=== PATIENT | female | born 1955 ===

== ENCOUNTER 2021-04-04 13:22 | Inpatient (IN) ==
[2021-04-04] MEDS ORDERED: Furosemide 40 mg/4 ml IV VIAL IV SCH (16:00)
[2021-04-04 16:25] LABS: ABS Lymphocytes 0.3 10^3/ul (1.0-4.8); ABS Monocytes 0.2 10^3/ul (0-0.8); ABS Neutrophils 6.8 10^3/ul (1.5-7.7); Hematocrit 48 % (35-47); Hemoglobin 15.5 g/dL (12.0-16.0); Lymphocyte % 4.1 %; Mean Corpuscular HGB Conc 32 g/dL (31-36); Mean Corpuscular Hemoglobin 33 pg (27-31); Mean Corpuscular Volume 103 fL (80-97); Mean Platelet Volume 7.5 fL (7.4-10.4); Platelet Count 242 10^3/uL (150-450); Red Blood Count 4.68 10^6 /uL (3.70-4.87); Red Cell Distribution Width 15 % (10-15); White Blood Count 7.3 10^3/uL (3.5-10.8)
[2021-04-04 16:27] LABS: Urine Appearance Cloudy; Urine Bilirubin Negative (Negative); Urine Blood 3+ (Negative); Urine Color Yellow; Urine Glucose Negative (Negative); Urine Ketones 1+ (Negative); Urine Nitrite Negative (Negative); Urine Protein 2+(100 mg/dL) (Negative); Urine Specific Gravity 1.026 (1.002-1.030); Urine Urobilinogen Negative (Negative)
[2021-04-04 16:35] LABS: Urine Bacteria Absent (Absent); Urine Red Blood Cell 3+(>10/hpf) (Absent); Urine Squamous Epithelial Cell Present (Absent); Urine White Blood Cell Trace(0-5/hpf) (Absent)
[2021-04-04] MEDS: Enoxaparin 40 MG/0.4 ML SYR SUBCUT SCH (16:40)
[2021-04-04] MEDS: Aspirin EC 81 mg TAB.EC (enteric coated) PO SCH (16:43)
[2021-04-04 16:44] LABS: Activated Partial Thrombo Time 33.6 seconds (26.0-38.0); INR 1.05 (0.86-1.15)
[2021-04-04 16:47] LABS: Troponin I 0.04 ng/mL (<0.03)
[2021-04-04 17:16] LABS: ALT 3 U/L (7-52); AST 12 U/L (13-39); Alkaline Phosphatase 55 U/L (35-149); Blood Urea Nitrogen 41 mg/dL (6-24); CO2 Carbon Dioxide 31 mmol/L (22-32); Calcium 9.1 mg/dL (8.6-10.3); Chloride 105 mmol/L (101-111); Globulin 2.9 g/dL (2-4); Glucose 136 mg/dL (70-100); Magnesium 2.1 mg/dL (1.9-2.7); Phosphorus 3.1 mg/dL (2.5-5.0); Sodium 141 mmol/L (135-145); Total Protein 5.9 g/dL (6.4-8.9)
[2021-04-04 17:17] LABS: Anion Gap 5 mmol/L (2-11); Potassium 5.2 mmol/L (3.5-5.0)
[2021-04-04] MEDS ORDERED: Albuterol HFA INHALER 8 gm MDI INH PRN (17:37)
[2021-04-04] MEDS ORDERED: Furosemide 40 mg/4 ml IV VIAL IV ONE (17:44)
[2021-04-04 18:38] LABS: Vitamin B12 643 pg/mL (180-914)
[2021-04-04 19:07] LABS: TSH Ultra Thyroid Stim Horm 0.02 mcIU/mL (0.34-5.60)
[2021-04-04] MEDS: Albuterol/Ipratropium NEB.SOL (2.5/0.5 MG) 3 ML NEB.SOLN INH SCH (19:44)
[2021-04-04] MEDS ORDERED: Iohexol 350 (CONTRAST) 500 ML MDV IV ONE (21:37)
[2021-04-04] MEDS ORDERED: Heparin 5000 UNITS/ML 1 mL VIAL SUBCUT SCH (22:00)
[2021-04-05 00:34] LABS: Troponin I 0.04 ng/mL (<0.03)
[2021-04-05 05:10] LABS: ABS Lymphocytes 0.4 10^3/ul (1.0-4.8); ABS Monocytes 0.5 10^3/ul (0-0.8); ABS Neutrophils 5.9 10^3/ul (1.5-7.7); Hematocrit 42 % (35-47); Hemoglobin 13.9 g/dL (12.0-16.0); Lymphocyte % 5.3 %; Mean Corpuscular HGB Conc 33 g/dL (31-36); Mean Corpuscular Hemoglobin 34 pg (27-31); Mean Corpuscular Volume 102 fL (80-97); Mean Platelet Volume 7.5 fL (7.4-10.4); Platelet Count 190 10^3/uL (150-450); Red Blood Count 4.12 10^6 /uL (3.70-4.87); Red Cell Distribution Width 14 % (10-15); White Blood Count 6.7 10^3/uL (3.5-10.8)
[2021-04-05 05:27] LABS: Anion Gap 2 mmol/L (2-11); Blood Urea Nitrogen 37 mg/dL (6-24); CO2 Carbon Dioxide 39 mmol/L (22-32); Calcium 8.4 mg/dL (8.6-10.3); Chloride 99 mmol/L (101-111); Glucose 118 mg/dL (70-100); Phosphorus 2.4 mg/dL (2.5-5.0); Potassium 4.2 mmol/L (3.5-5.0); Sodium 140 mmol/L (135-145)
[2021-04-05 05:49] LABS: Troponin I 0.03 ng/mL (<0.03)
[2021-04-05] MEDS: Albuterol/Ipratropium NEB.SOL (2.5/0.5 MG) 3 ML NEB.SOLN INH SCH (06:59)
[2021-04-05] MEDS: Aspirin EC 81 mg TAB.EC (enteric coated) PO SCH (09:38)
[2021-04-05] MEDS: Buprenorp/Nalox 8-2 MG FILM SL FILM SCH ×2 (09:39→20:30)
[2021-04-05] MEDS: Enoxaparin 40 MG/0.4 ML SYR SUBCUT SCH (09:39)
[2021-04-05 10:03] LABS: Free T4 1.11 ng/dL (0.61-1.12)
[2021-04-05 12:25] LABS: Body Fluid Source Pleural Fluid
[2021-04-05 13:21] LABS: Body Fluid Appearance Cloudy; Body Fluid Color Amber
[2021-04-05] MEDS ORDERED: Levalbuterol 0.63MG/3ML NEB UNIT OF USE INH PRN (13:29)
[2021-04-05] MEDS ORDERED: SPIRIVA Respimat (tiotropium) 2.5 mcg/inh Inhaler INH SCH (14:00)
[2021-04-05 14:18] LABS: Body Fluid WBC 806 /mcL
[2021-04-05 14:59] LABS: Body Fluid Mono 23 %; Body Fluid Other Cells 5; Body Fluid Total Cells Counted 200
[2021-04-05 18:56] LABS: Hematocrit 42 % (35-47); Hemoglobin 13.7 g/dL (12.0-16.0); Mean Corpuscular HGB Conc 33 g/dL (31-36); Mean Corpuscular Hemoglobin 33 pg (27-31); Mean Corpuscular Volume 102 fL (80-97); Mean Platelet Volume 7.4 fL (7.4-10.4); Platelet Count 187 10^3/uL (150-450); Red Blood Count 4.11 10^6 /uL (3.70-4.87); Red Cell Distribution Width 14 % (10-15); White Blood Count 10.5 10^3/uL (3.5-10.8)
[2021-04-05] MEDS ORDERED: Levalbuterol 0.63MG/3ML NEB UNIT OF USE INH SCH (19:00)
[2021-04-05 19:50] LABS: INR 1.1 (0.86-1.15)
[2021-04-06 05:14] LABS: ABS Lymphocytes 0.5 10^3/ul (1.0-4.8); ABS Monocytes 0.7 10^3/ul (0-0.8); ABS Neutrophils 5.7 10^3/ul (1.5-7.7); Eosinophil % 0.6 %; Hematocrit 40 % (35-47); Hemoglobin 12.9 g/dL (12.0-16.0); Lymphocyte % 6.8 %; Mean Corpuscular HGB Conc 32 g/dL (31-36); Mean Corpuscular Hemoglobin 33 pg (27-31); Mean Corpuscular Volume 102 fL (80-97); Mean Platelet Volume 8.2 fL (7.4-10.4); Platelet Count 158 10^3/uL (150-450); Red Cell Distribution Width 14 % (10-15); White Blood Count 6.9 10^3/uL (3.5-10.8)
[2021-04-06 05:28] LABS: Blood Urea Nitrogen 34 mg/dL (6-24); Calcium 8.1 mg/dL (8.6-10.3); Chloride 100 mmol/L (101-111); Glucose 108 mg/dL (70-100); Phosphorus 2.2 mg/dL (2.5-5.0); Potassium 4.6 mmol/L (3.5-5.0); Sodium 140 mmol/L (135-145)
[2021-04-06 05:31] LABS: CO2 Carbon Dioxide 43 mmol/L (22-32)
[2021-04-06] MEDS ORDERED: Potassium Phosphate IV 15 MMOLE in NS 0.9% 250 ml 250 ML IVPB ONE (05:42)
[2021-04-06] MEDS ORDERED: Sodium Phosphate IV 15 MMOLE in NS 0.9% 250 ml 250 ML IV ONE (07:25)
[2021-04-06] MEDS: SPIRIVA Respimat (tiotropium) 2.5 mcg/inh Inhaler INH SCH (07:45)
[2021-04-06] MEDS: Buprenorp/Nalox 8-2 MG FILM SL FILM SCH ×2 (09:15→22:16)
[2021-04-06] MEDS: Aspirin EC 81 mg TAB.EC (enteric coated) PO SCH (09:15)
[2021-04-06 09:47] LABS: Vitamin B12 419 pg/mL (180-914)
[2021-04-06 12:06] LABS: Lactate Dehydrogenase, BF 116 U/L
[2021-04-06] MEDS: Mometasone/Formoter 200/5 MDI INH SCH ×2 (12:21→21:02)
[2021-04-06 13:40] LABS: Fluid Type, Protein, Total PLEURAL; Total Protein, BF 3.3 g/dL
[2021-04-06 13:52] LABS: Glucose, BF 130 mg/dL
[2021-04-06] MEDS ORDERED: Enoxaparin 40 MG/0.4 ML SYR SUBCUT SCH (16:00)
[2021-04-06 18:17] LABS: Rapid COVID-19 Molecular Undetected (Undetected)
[2021-04-07 06:31] LABS: ABS Eosinophils 0.1 10^3/ul (0-0.6); ABS Lymphocytes 0.4 10^3/ul (1.0-4.8); ABS Monocytes 0.6 10^3/ul (0-0.8); ABS Neutrophils 5.7 10^3/ul (1.5-7.7); Eosinophil % 2.1 %; Hematocrit 40 % (35-47); Lymphocyte % 6.3 %; Mean Corpuscular HGB Conc 33 g/dL (31-36); Mean Corpuscular Hemoglobin 33 pg (27-31); Mean Corpuscular Volume 103 fL (80-97); Mean Platelet Volume 7.7 fL (7.4-10.4); Platelet Count 126 10^3/uL (150-450); Red Blood Count 3.91 10^6 /uL (3.70-4.87); Red Cell Distribution Width 14 % (10-15); White Blood Count 6.9 10^3/uL (3.5-10.8)
[2021-04-07 06:52] LABS: Blood Urea Nitrogen 30 mg/dL (6-24); CO2 Carbon Dioxide 39 mmol/L (22-32); Calcium 8.2 mg/dL (8.6-10.3); Chloride 102 mmol/L (101-111); Glucose 102 mg/dL (70-100); Magnesium 1.9 mg/dL (1.9-2.7); Phosphorus 2.7 mg/dL (2.5-5.0); Potassium 4.2 mmol/L (3.5-5.0); Sodium 140 mmol/L (135-145)
[2021-04-07] MEDS: Mometasone/Formoter 200/5 MDI INH SCH ×2 (08:56→21:22)
[2021-04-07] MEDS: SPIRIVA Respimat (tiotropium) 2.5 mcg/inh Inhaler INH SCH (08:56)
[2021-04-07] MEDS ORDERED: Enoxaparin 30 MG/0.3 ML SYR SUBCUT SCH (09:00)
[2021-04-07] MEDS: Aspirin EC 81 mg TAB.EC (enteric coated) PO SCH (09:03)
[2021-04-07] MEDS: Buprenorp/Nalox 8-2 MG FILM SL FILM SCH ×2 (09:32→20:52)
[2021-04-07 17:20] LABS: PCO2 Arterial 65 mmHg (35-45); PO2 Arterial 66 mmHg (80-100)
[2021-04-07] MEDS: acetaZOLAMIDE IV 500 MG in NS 0.9% 50 ML 50 ML IVPB SCH (18:16)
[2021-04-07 19:12] LABS: Blood Urea Nitrogen 29 mg/dL (6-24); CO2 Carbon Dioxide 40 mmol/L (22-32); Calcium 8.2 mg/dL (8.6-10.3); Chloride 101 mmol/L (101-111); Glucose 96 mg/dL (70-100); Potassium 4.5 mmol/L (3.5-5.0); Sodium 140 mmol/L (135-145)
[2021-04-07 19:29] LABS: LDH 121 U/L (140-271)
[2021-04-07] MEDS: Enoxaparin 30 MG/0.3 ML SYR SUBCUT SCH (20:52)
[2021-04-08 05:48] LABS: PCO2 Arterial 66 mmHg (35-45); PO2 Arterial 65 mmHg (80-100)
[2021-04-08 06:39] LABS: Blood Urea Nitrogen 24 mg/dL (6-24); CO2 Carbon Dioxide 38 mmol/L (22-32); Calcium 8.6 mg/dL (8.6-10.3); Chloride 103 mmol/L (101-111); Glucose 106 mg/dL (70-100); Magnesium 2.1 mg/dL (1.9-2.7); Phosphorus 3.2 mg/dL (2.5-5.0); Potassium 4.1 mmol/L (3.5-5.0); Sodium 141 mmol/L (135-145)
[2021-04-08] MEDS: SPIRIVA Respimat (tiotropium) 2.5 mcg/inh Inhaler INH SCH (07:44)
[2021-04-08] MEDS: Mometasone/Formoter 200/5 MDI INH SCH ×2 (07:44→21:09)
[2021-04-08] MEDS: Aspirin EC 81 mg TAB.EC (enteric coated) PO SCH (10:37)
[2021-04-08] MEDS: Buprenorp/Nalox 8-2 MG FILM SL FILM SCH ×2 (10:38→22:18)
[2021-04-08] MEDS: acetaZOLAMIDE IV 500 MG in NS 0.9% 50 ML 50 ML IVPB SCH (17:42)
[2021-04-08] MEDS: Enoxaparin 30 MG/0.3 ML SYR SUBCUT SCH (22:17)
[2021-04-09 06:49] LABS: Calcium 8.7 mg/dL (8.6-10.3)
[2021-04-09] MEDS: Mometasone/Formoter 200/5 MDI INH SCH ×2 (09:13→19:17)
[2021-04-09] MEDS: SPIRIVA Respimat (tiotropium) 2.5 mcg/inh Inhaler INH SCH (09:13)
[2021-04-09 09:47] LABS: PCO2 Arterial 54 mmHg (35-45); PO2 Arterial 65 mmHg (80-100)
[2021-04-09] MEDS: Aspirin EC 81 mg TAB.EC (enteric coated) PO SCH (10:58)
[2021-04-09] MEDS: Buprenorp/Nalox 8-2 MG FILM SL FILM SCH (11:06)
[2021-04-09 13:01] LABS: Urine Appearance Cloudy; Urine Bilirubin Negative (Negative); Urine Blood Negative (Negative); Urine Color Yellow; Urine Glucose Negative (Negative); Urine Ketones Trace (Negative); Urine Nitrite Negative (Negative); Urine Protein Negative (Negative); Urine Specific Gravity 1.009 (1.002-1.030); Urine Urobilinogen Negative (Negative)
[2021-04-09 13:30] LABS: Urine Benzodiazepine Screen None Detected (None Detect); Urine Cannabinoids Screen None Detected (None Detect); Urine Opiates Screen None Detected (None Detect)
[2021-04-09] MEDS ORDERED: Lactated Ringers 500 ml BAG 500 ML IV ONE ×2 (16:07→17:07)
[2021-04-09] MEDS ORDERED: Lactated Ringers 1000 ml BAG 1,000 ML IV SCH (17:00)
[2021-04-09] MEDS: Enoxaparin 30 MG/0.3 ML SYR SUBCUT SCH (20:18)
[2021-04-10 05:26] LABS: Hematocrit 39 % (35-47); Hemoglobin 12.7 g/dL (12.0-16.0); Mean Corpuscular HGB Conc 32 g/dL (31-36); Mean Corpuscular Hemoglobin 33 pg (27-31); Mean Corpuscular Volume 101 fL (80-97); Platelet Count 166 10^3/uL (150-450); Red Blood Count 3.87 10^6 /uL (3.70-4.87); Red Cell Distribution Width 14 % (10-15); White Blood Count 6.6 10^3/uL (3.5-10.8)
[2021-04-10 05:59] LABS: Calcium 8.6 mg/dL (8.6-10.3); Phosphorus 3.1 mg/dL (2.5-5.0)
[2021-04-10] MEDS: Mometasone/Formoter 200/5 MDI INH SCH ×2 (07:15→19:10)
[2021-04-10] MEDS: SPIRIVA Respimat (tiotropium) 2.5 mcg/inh Inhaler INH SCH (07:15)
[2021-04-10] MEDS: D5LR 1000 ml BAG 1,000 ML IV SCH ×2 (08:19→21:32)
[2021-04-10] MEDS: Aspirin EC 81 mg TAB.EC (enteric coated) PO SCH (08:21)
[2021-04-10] MEDS ORDERED: Thiamine 100 MG/ML 2 ml VIAL 500 MG in NS 0.9% 250 ml 250 ML IV ONE (09:30)
[2021-04-10] MEDS: Thiamine 100 MG/ML 2 ml VIAL 500 MG in NS 0.9% 250 ml 250 ML IV SCH ×2 (10:37→18:14)
[2021-04-10] MEDS ORDERED: Lorazepam PYXIS KEY ONE (13:14)
[2021-04-10] MEDS ORDERED: LORazepam 2 mg VIAL 1 ml ONE (13:14)
[2021-04-10] MEDS ORDERED: levETIRAcetam 1000MG IVPREMIX 1,000 MG/100 ML BAG IVPB ONE (13:51)
[2021-04-10 17:24] LABS: TSH Ultra Thyroid Stim Horm 0.62 mcIU/mL (0.34-5.60)
[2021-04-10] MEDS: Enoxaparin 30 MG/0.3 ML SYR SUBCUT SCH (22:25)
[2021-04-11] MEDS: Thiamine 100 MG/ML 2 ml VIAL 500 MG in NS 0.9% 250 ml 250 ML IV SCH ×3 (02:34→18:31)
[2021-04-11] MEDS: levETIRAcetam 500 MG IVPREMIX 500 MG/100 ML BAG IV SCH ×2 (02:34→13:46)
[2021-04-11 04:59] LABS: ABS Eosinophils 0.1 10^3/ul (0-0.6); ABS Lymphocytes 0.5 10^3/ul (1.0-4.8); ABS Monocytes 0.6 10^3/ul (0-0.8); ABS Neutrophils 4.8 10^3/ul (1.5-7.7); Eosinophil % 1.4 %; Hematocrit 36 % (35-47); Lymphocyte % 8.9 %; Mean Corpuscular HGB Conc 33 g/dL (31-36); Mean Corpuscular Hemoglobin 34 pg (27-31); Mean Corpuscular Volume 102 fL (80-97); Mean Platelet Volume 8.2 fL (7.4-10.4); Platelet Count 176 10^3/uL (150-450); Red Blood Count 3.55 10^6 /uL (3.70-4.87); Red Cell Distribution Width 13 % (10-15)
[2021-04-11] MEDS: Levothyroxine 100 MCG/5 ML VIAL IV SCH (06:22)
[2021-04-11] MEDS: Mometasone/Formoter 200/5 MDI INH SCH ×2 (08:17→19:24)
[2021-04-11] MEDS: SPIRIVA Respimat (tiotropium) 2.5 mcg/inh Inhaler INH SCH (08:19)
[2021-04-11] MEDS: Aspirin EC 81 mg TAB.EC (enteric coated) PO SCH (10:04)
[2021-04-11] MEDS: Pantoprazole VIAL 40 MG VIAL IV SCH (10:13)
[2021-04-11] MEDS: Acetaminophen IV 1 GM/100ML 100 ML IV PRN ×2 (10:13→21:38)
[2021-04-11] MEDS: Metoprolol Tartrate 5 mg VIAL 5 ml VIAL (1 mg/ml) IV SCH ×2 (10:14→21:20)
[2021-04-11] MEDS ORDERED: NS 0.9% 250 ml 250 ML ONE (21:22)
[2021-04-11] MEDS: Enoxaparin 30 MG/0.3 ML SYR SUBCUT SCH (21:33)
[2021-04-12] MEDS ORDERED: NS 0.9% 250 ml 250 ML ONE (01:01)
[2021-04-12] MEDS: Thiamine 100 MG/ML 2 ml VIAL 500 MG in NS 0.9% 250 ml 250 ML IV SCH (01:13)
[2021-04-12] MEDS: levETIRAcetam 500 MG IVPREMIX 500 MG/100 ML BAG IV SCH ×2 (01:13→15:12)
[2021-04-12 04:29] LABS: Calcium 7.9 mg/dL (8.6-10.3); Magnesium 1.7 mg/dL (1.9-2.7); Phosphorus 2.9 mg/dL (2.5-5.0); Potassium 3.9 mmol/L (3.5-5.0)
[2021-04-12] MEDS ORDERED: Furosemide 20 mg/2 ml IV VIAL IV ONE (04:52)
[2021-04-12] MEDS: Levothyroxine 100 MCG/5 ML VIAL IV SCH (05:33)
[2021-04-12] MEDS ORDERED: Magnesium Sulfate 2 gm BAG 2 GM/50 ML BAG IVPB ONE (06:24)
[2021-04-12 06:42] LABS: ABS Eosinophils 0.1 10^3/ul (0-0.6); ABS Lymphocytes 0.4 10^3/ul (1.0-4.8); ABS Monocytes 0.6 10^3/ul (0-0.8); ABS Neutrophils 3.7 10^3/ul (1.5-7.7); Hematocrit 34 % (35-47); Hemoglobin 11.2 g/dL (12.0-16.0); Mean Corpuscular HGB Conc 33 g/dL (31-36); Mean Corpuscular Hemoglobin 34 pg (27-31); Mean Corpuscular Volume 103 fL (80-97); Mean Platelet Volume 8.7 fL (7.4-10.4); Nucleated Red Blood Cells % 0.1; Platelet Count 179 10^3/uL (150-450); Red Blood Count 3.33 10^6 /uL (3.70-4.87); Red Cell Distribution Width 14 % (10-15); White Blood Count 4.9 10^3/uL (3.5-10.8)
[2021-04-12] MEDS: Acetaminophen IV 1 GM/100ML 100 ML IV PRN (07:24)
[2021-04-12] MEDS: Mometasone/Formoter 200/5 MDI INH SCH ×2 (07:56→19:21)
[2021-04-12] MEDS: SPIRIVA Respimat (tiotropium) 2.5 mcg/inh Inhaler INH SCH (07:56)
[2021-04-12] MEDS: Aspirin EC 81 mg TAB.EC (enteric coated) PO SCH ×2 (09:35→09:54)
[2021-04-12] MEDS: Pantoprazole VIAL 40 MG VIAL IV SCH (09:35)
[2021-04-12] MEDS: Metoprolol Tartrate 5 mg VIAL 5 ml VIAL (1 mg/ml) IV SCH ×2 (09:35→21:29)
[2021-04-12] MEDS: Enoxaparin 30 MG/0.3 ML SYR SUBCUT SCH (21:31)
[2021-04-13] MEDS: levETIRAcetam 500 MG IVPREMIX 500 MG/100 ML BAG IV SCH ×2 (01:33→14:31)
[2021-04-13] MEDS: Levothyroxine 100 MCG/5 ML VIAL IV SCH (05:19)
[2021-04-13] MEDS: Acetaminophen IV 1 GM/100ML 100 ML IV PRN (05:22)
[2021-04-13] MEDS: Aspirin EC 81 mg TAB.EC (enteric coated) PO SCH (09:07)
[2021-04-13] MEDS: Metoprolol Tartrate 5 mg VIAL 5 ml VIAL (1 mg/ml) IV SCH ×2 (09:08→20:51)
[2021-04-13] MEDS: Pantoprazole VIAL 40 MG VIAL IV SCH (09:09)
[2021-04-13] MEDS: Mometasone/Formoter 200/5 MDI INH SCH ×2 (09:26→19:11)
[2021-04-13] MEDS: SPIRIVA Respimat (tiotropium) 2.5 mcg/inh Inhaler INH SCH (10:13)
[2021-04-13] MEDS: Enoxaparin 30 MG/0.3 ML SYR SUBCUT SCH (20:51)
[2021-04-14] MEDS: Acetaminophen IV 1 GM/100ML 100 ML IV PRN ×3 (00:01→22:54)
[2021-04-14] MEDS ORDERED: levETIRAcetam IV 500 MG in NS 0.9% 100 ml BAG 100 ML IVPB SCH (02:00)
[2021-04-14] MEDS: Levothyroxine 100 MCG/5 ML VIAL IV SCH (07:18)
[2021-04-14] MEDS: Mometasone/Formoter 200/5 MDI INH SCH ×2 (07:26→21:13)
[2021-04-14] MEDS: SPIRIVA Respimat (tiotropium) 2.5 mcg/inh Inhaler INH SCH (07:29)
[2021-04-14] MEDS: Aspirin EC 81 mg TAB.EC (enteric coated) PO SCH (09:19)
[2021-04-14] MEDS: Pantoprazole VIAL 40 MG VIAL IV SCH (09:19)
[2021-04-14] MEDS: Metoprolol Tartrate 5 mg VIAL 5 ml VIAL (1 mg/ml) IV SCH ×2 (09:19→20:32)
[2021-04-14] MEDS: levETIRAcetam 500 MG/100 ML IV SCH (12:53)
[2021-04-14] MEDS: Enoxaparin 30 MG/0.3 ML SYR SUBCUT SCH (20:31)
[2021-04-14] MEDS: Levalbuterol HFA INHALER MDI INH PRN (21:11)
[2021-04-15] MEDS: levETIRAcetam 500 MG/100 ML IV SCH (01:50)
[2021-04-15] MEDS: Levalbuterol HFA INHALER MDI INH PRN (04:50)
[2021-04-15] MEDS: Levothyroxine 100 MCG/5 ML VIAL IV SCH (06:09)
[2021-04-15] MEDS: SPIRIVA Respimat (tiotropium) 2.5 mcg/inh Inhaler INH SCH (07:59)
[2021-04-15] MEDS: Mometasone/Formoter 200/5 MDI INH SCH ×2 (07:59→19:21)
[2021-04-15 09:55] LABS: ABS Eosinophils 0.1 10^3/ul (0-0.6); ABS Lymphocytes 0.3 10^3/ul (1.0-4.8); ABS Monocytes 0.4 10^3/ul (0-0.8); ABS Neutrophils 6.3 10^3/ul (1.5-7.7); Eosinophil % 0.8 %; Hematocrit 42 % (35-47); Lymphocyte % 3.9 %; Mean Corpuscular HGB Conc 33 g/dL (31-36); Mean Corpuscular Hemoglobin 33 pg (27-31); Mean Corpuscular Volume 99 fL (80-97); Mean Platelet Volume 8.5 fL (7.4-10.4); Platelet Count 237 10^3/uL (150-450); Red Blood Count 4.24 10^6 /uL (3.70-4.87); Red Cell Distribution Width 14 % (10-15); White Blood Count 7.1 10^3/uL (3.5-10.8)
[2021-04-15 10:12] LABS: Calcium 8.9 mg/dL (8.6-10.3); Potassium 3.4 mmol/L (3.5-5.0)
[2021-04-15] MEDS: Aspirin EC 81 mg TAB.EC (enteric coated) PO SCH (10:21)
[2021-04-15] MEDS: Pantoprazole VIAL 40 MG VIAL IV SCH (10:21)
[2021-04-15] MEDS: Metoprolol Tartrate 5 mg VIAL 5 ml VIAL (1 mg/ml) IV SCH (10:21)
[2021-04-15] MEDS: Calcium Carb (TUMS) 500 mg CHEW TAB PO SCH ×2 (15:31→19:40)
[2021-04-15] MEDS: Buprenorp/Nalox 8-2 MG FILM SL FILM SCH (17:33)
[2021-04-15] MEDS: Enoxaparin 30 MG/0.3 ML SYR SUBCUT SCH (19:40)
[2021-04-16 05:16] LABS: Anion Gap 3 mmol/L (2-11); Blood Urea Nitrogen 20 mg/dL (6-24); CO2 Carbon Dioxide 32 mmol/L (22-32); Calcium 8.5 mg/dL (8.6-10.3); Chloride 105 mmol/L (101-111); Glucose 91 mg/dL (70-100); Magnesium 1.6 mg/dL (1.9-2.7); Potassium 3.6 mmol/L (3.5-5.0); Sodium 140 mmol/L (135-145)
[2021-04-16] MEDS: Mometasone/Formoter 200/5 MDI INH SCH ×2 (07:00→22:07)
[2021-04-16] MEDS ORDERED: Magnesium Sulfate 2 gm BAG 2 GM/50 ML BAG IVPB ONE (07:13)
[2021-04-16] MEDS: Calcium Carb (TUMS) 500 mg CHEW TAB PO SCH ×2 (09:31→19:40)
[2021-04-16] MEDS: Buprenorp/Nalox 8-2 MG FILM SL FILM SCH (09:31)
[2021-04-16] MEDS: Aspirin EC 81 mg TAB.EC (enteric coated) PO SCH (09:32)
[2021-04-16] MEDS: SPIRIVA Respimat (tiotropium) 2.5 mcg/inh Inhaler INH SCH (09:57)
[2021-04-16] MEDS: Enoxaparin 30 MG/0.3 ML SYR SUBCUT SCH (19:40)
[2021-04-17] MEDS: Mometasone/Formoter 200/5 MDI INH SCH (07:19)
[2021-04-17] MEDS: SPIRIVA Respimat (tiotropium) 2.5 mcg/inh Inhaler INH SCH (07:19)
[2021-04-17] MEDS: Aspirin EC 81 mg TAB.EC (enteric coated) PO SCH (09:53)
[2021-04-17] MEDS: Buprenorp/Nalox 8-2 MG FILM SL FILM SCH (09:53)
[2021-04-17] MEDS: Calcium Carb (TUMS) 500 mg CHEW TAB PO SCH (09:53)
[2021-04-17 10:59] VITALS: BP 115/56
== END 2021-04-17 14:50 | disposition hospice, home (50) | DRG 280 ==
LOC: SUATTDRO 14:57 → ICU 14:57 → MEDTELE 04-06 19:11 → ICU 04-09 10:37 → MED 04-14 18:22
PROVIDERS: ADMIT Internal Medicine; ATTEND Internal Medicine